=== PATIENT | female | born 1965 | race Caucasian/White ===

== ENCOUNTER 2018-12-06 19:38 | Emergency (ER) | payer BC, OTHER ==
[~2018-12-06] VITALS: Ht 167.6 cm; Wt 59.1 kg
[2018-12-06 19:44] VITALS: BP 145/81
[2018-12-06] MEDS ORDERED: ketorolac trometh. 30mg/ml inj. IV ONE (20:30)
[2018-12-06] MEDS ORDERED: CYCL-1 PO (21:33)
[2018-12-06] MEDS ORDERED: NAPR-56 PO (21:33)
== END 2018-12-06 21:45 | disposition home or self-care (01) ==
LOC: ER 19:39
DX: M54.5 Low back pain (principal); M25.552 Pain in left hip; M25.551 Pain in right hip; M79.605 Pain in left leg; M79.604 Pain in right leg; Z79.899 Other long term (current) drug therapy; X58.XXXA Exposure to other specified factors, initial encounter; Y93.64 Activity, baseball; Y92.39 Other specified sports and athletic area as the place of occurrence of the external cause; Y99.8 Other external cause status
CPT/HCPCS: 73521; 96374; 99283; J1885

== ENCOUNTER 2022-11-08 23:33 | Emergency (ER) | payer BC ==
[~2022-11-08] VITALS: Ht 167.6 cm; Wt 57.7 kg
[~2022-11-08 23:33] MED LIST: CYCL-1 PO
[2022-11-08 23:54] VITALS: BP 142/99
--- NOTE | 2022-11-09 00:55 | NUR ---
C-SPINE cleared by LIANA BEEBE. C Collar removed.
[2022-11-09] MEDS ORDERED: dextrose 5%-1/2 normal saline 1,000 ML IV ONE (01:00)
[2022-11-09 01:45] LABS: BASOPHILS # (AUTO) 0.1 X10'3 (0-0.2); BASOPHILS % (AUTO) 1.1 % (0-1); EOSINOPHILS # (AUTO) 0.1 X10'3 (0-0.9); EOSINOPHILS % (AUTO) 1.6 % (0-6); HEMOGLOBIN 16.2 g/dl (12.0-16.0); LYMPHOCYTES # (AUTO) 1.9 X10'3 (1.1-4.8); LYMPHOCYTES % (AUTO) 26.2 % (21-51); MEAN CORPUSCULAR HEMOGLOBIN 34.5 PG (27.0-31.0); MEAN CORPUSCULAR HGB CONC 34.5 g/dL (33.0-36.5); MEAN PLATELET VOLUME 7.5 FL (7.4-10.4); MONOCYTES # (AUTO) 0.7 X10'3 (0-0.9); MONOCYTES % (AUTO) 9.7 % (2-12); NEUTROPHILS # (AUTO) 4.4 X10'3 (1.8-7.7); NEUTROPHILS % (AUTO) 61.4 % (42-75); PLATELET COUNT 240 X10'3 (140-440); RED CELL DISTRIBUTION WIDTH 13.5 % (11.5-14.5); WHITE BLOOD COUNT 7.1 X10'3 (4.5-11.0)
[2022-11-09 01:56] LABS: ALANINE AMINOTRANSFERASE 17 U/L (12-78); ALBUMIN 3.5 G/DL (3.4-5.0); ALBUMIN/GLOBULIN RATIO 1.3 (1.1-1.5); ALKALINE PHOSPHATASE 90 IU/L (46-116); ANION GAP 8 (8-16); ASPARTATE AMINO TRANSFERASE 15 U/L (10-37); BILIRUBIN,TOTAL 0.2 MG/DL (0.1-1.0); BLOOD UREA NITROGEN 4 MG/DL (7-18); BUN/CREATININE RATIO 7.4 (6.6-38.0); CHLORIDE 113 MMOL/L (99-107); CREATININE 0.54 MG/DL (0.40-0.90); ETHANOL 0.188 GM/DL (0.0-0.010); GLUCOSE 94 MG/DL (70-104); POTASSIUM 3.9 MMOL/L (3.5-5.1); SODIUM 146 MMOL/L (135-145); TOTAL CARBON DIOXIDE 24.8 MMOL/L (24-32); TOTAL PROTEIN 6.2 G/DL (6.4-8.2); eGFR > 90 ML/MIN
== END 2022-11-09 05:13 | disposition home or self-care (01) ==
LOC: ER 23:38
DX: S01.01XA Laceration without foreign body of scalp, initial encounter (principal); W18.39XA Other fall on same level, initial encounter; Y93.89 Activity, other specified; Y92.89 Other specified places as the place of occurrence of the external cause; Y99.8 Other external cause status
CPT/HCPCS: 12001; 36415; 70450; 72125; 80053; 80320; 85025; 96365; 96366; 99285; J7042